=== PATIENT | female | born 1985 | race Caucasian/White ===

== ENCOUNTER 2016-10-18 11:02 | Emergency (ER) | payer OTHER ==
[~2016-10-18] VITALS: Ht 172.7 cm; Wt 79.4 kg
[~2016-10-18 11:02] MED LIST: BUPR100T7 PO; HYDR-971 PO; RIZA10TA PO; SERT25TA PO; ZOLP5TAB PO
[2016-10-18 11:08] VITALS: BP 124/66
[2016-10-18] MEDS ORDERED: PROMETHAZINE 25 MG/ML VIAL IV ONE (11:34)
[2016-10-18] MEDS ORDERED: IV NORMAL SALINE 50ML 50 ML ONE (11:35)
[2016-10-18] MEDS ORDERED: PROMETHAZINE 25 MG in IV NORMAL SALINE 50ML 50 ML IV PRN (11:45)
[2016-10-18] MEDS ORDERED: IV NORMAL SALINE 1,000ML 1,000 ML IV SCH (11:45)
[2016-10-18] MEDS ORDERED: KETOROLAC 30 MG/ML VIAL. IV ONE (11:45)
[2016-10-18] MEDS ORDERED: DIPHENHYDRAMINE 50 MG/ML VIAL IVP ONE (11:45)
[2016-10-18] MEDS ORDERED: HALOPERIDOL LACT 5 MG/ML VIAL. IVP ONE (11:45)
--- NOTE | 2016-10-18 11:59 | PHYS DOC ---
General Chief Complaint: HEADACHE Stated Complaint: MIGRAINE SINCE WEDNESDAY Time Seen by MD: 11:09 Source: patient, old records Exam Limitations: no limitations Problems: History of Present Illness Initial Comments Pt is 31/F to ED c/o migraine. Pt has h/o migraine headaches usually takes imitrex, has had negative imaging in past. GUTIERREZ x 2 days, not "worst of life" +photophobia/nausea/aura/scotoma no focal weakness. No fever/chills/rash/neck stiffness/trauma. Pt has "maxed out " on her home imitrex today, GUTIERREZ persists. Pt notified RN that dilaudid helps her headaches. Timing/Duration: constant (2 days) Severity: severe Modifying Factors: improves with medication, worse with movement, improves with rest Associated Symptoms: headaches, loss of appetite, malaise, nausea/vomiting, other Allergies: Coded Allergies: codeine (Verified Allergy, Intermediate, flu like s/s, 04/27/16) tramadol (Verified Allergy, Unknown, 02/13/16) Past Medical History Medical History: other (migraine) Surgical History: noncontributory (lateral release R knee), appendectomy, tonsillectomy Social History Smoker: non-smoker Alcohol: none Drugs: none Review of Systems Constitutional: denies chills, denies fever, malaise EENTM: see HPIdenies eye pain, denies blurred vision, denies ear pain, denies nose pain, denies throat pain Respiratory: denies cough, denies shortness of breath, denies wheezing Cardiovascular: denies chest pain, denies palpitations, denies syncope Gastrointestinal: denies abdominal pain, denies diarrhea, nauseadenies vomiting Genitourinary: denies dysuria, denies frequency, denies hematuria Musculoskeletal: denies back pain, denies joint swelling, denies neck pain Psychiatric/Neurological: see HPI headachedenies numbness, denies paresthesia Physical Exam General Appearance: WD/WN, no apparent distress Eyes: bilateral eye EOMI, bilateral eye PERRL, bilateral eye normal inspection Ear, Nose, Throat: hearing grossly normal, normal ENT inspection, normal pharynx Neck: non-tender, supple Respiratory: normal breath sounds, no respiratory distress Cardiovascular: normal peripheral pulses, regular rate, rhythm Gastrointestinal: non tender, soft Back: no CVA tenderness, no vertebral tenderness Extremities: normal range of motion, non-tender, normal inspection 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 Departure Time of Disposition: 12:16 Disposition: 01 HOME, SELF-CARE Diagnosis: migraine Condition: IMPROVED Patient Instructions: Migraine Headache, [id number] Additional Instructions: Rest, no strenuous activity. Aggressive hydration with gatorade, water. OTC tylenol/ibuprofen as needed. Continue current medications. Rx: zofran odt Follow up with your doctor as needed. Return to ED with new or changing symptoms. MELVIN NORTON DO Oct 18, 2016 11:59
[2016-10-18] MEDS ORDERED: ONDA4TAB10 PO (12:19)
== END 2016-10-18 12:22 | disposition home or self-care (01) ==
LOC: ER 11:02
DX: G43.909 Migraine, unspecified, not intractable, without status migrainosus (principal); Z88.6 Allergy status to analgesic agent
CPT/HCPCS: 96365; 96375; 99285; J1200; J1630; J1885; J2550; J7030

== ENCOUNTER 2016-12-15 12:33 | Emergency (ER) | payer OTHER ==
[~2016-12-15] VITALS: Ht 172.7 cm; Wt 79.4 kg
[~2016-12-15 12:33] MED LIST changes: +ONDA4TAB10 PO
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
[2016-12-15] MEDS ORDERED: HYDR-971 PO (13:22)
[2016-12-15] MEDS ORDERED: PRED20TA PO (13:22)
[2016-12-15] MEDS ORDERED: DIAZ5TAB PO (13:22)
[2016-12-15 13:30] VITALS: BP 119/63
== END 2016-12-15 13:40 | disposition home or self-care (01) ==
LOC: ER 12:33
DX: S16.1XXA Strain of muscle, fascia and tendon at neck level, initial encounter (principal); M43.6 Torticollis; G43.909 Migraine, unspecified, not intractable, without status migrainosus; Z88.6 Allergy status to analgesic agent; X58.XXXA Exposure to other specified factors, initial encounter; Y93.89 Activity, other specified; Y92.89 Other specified places as the place of occurrence of the external cause; Y99.8 Other external cause status
CPT/HCPCS: 99283